=== PATIENT | male | born 1950 | race Caucasian/White ===

== ENCOUNTER 2016-08-05 18:36 | Emergency (ER) | payer SELFPAY ==
[2016-08-05 19:27] LABS: BASOPHIL 0.3 % (0-2); EOSINOPHIL 2.9 % (0-7); HCT 39.2 % (42.0-52.0); HGB 13.4 g/dl (13.2-18.0); LYMPHOCYTE 22.5 % (15-48); MCH 29.8 pg (25.0-31.0); MCHC 34.2 g/dL (32.0-36.0); MCV 87.1 fL (78.0-100.0); MONOCYTE 7.8 % (0-12); MPV 9.6 fL (6.0-9.5); NEUTROPHIL 66.5 % (41-80); PLT 261 K/uL (150-400); RDW 13.3 % (11.5-14.0); WBC 7.6 K/uL (4.0-10.5)
[2016-08-05 19:42] LABS: INR 1.07 (0.9-1.2); PROTHROMBIN TIME 13.5 SECONDS (11.7-14.0)
[2016-08-05 19:43] LABS: PTT 31.7 SECONDS (23.2-31.4)
[2016-08-05 19:49] LABS: ALBUMIN 3.9 g/dL (3.4-4.8); BILIRUBIN - TOTAL 0.4 mg/dL (0.1-1.0); CREATININE 0.7 mg/dL (0.7-1.2); GLOBULIN (CALCULATION) 3.5 g/dL (2.2-4.2); LACTIC ACID 0.7 mmol/L (0.5-2.2); TOTAL PROTEIN 7.4 g/dL (6.4-8.3)
== END 2016-08-05 21:11 | disposition home or self-care (01) ==
LOC: FER 18:36
PROVIDERS: Emergency Medicine
DX: L03.113 Cellulitis of right upper limb (principal); E11.9 Type 2 diabetes mellitus without complications; I10 Essential (primary) hypertension; I25.2 Old myocardial infarction; Z87.891 Personal history of nicotine dependence; Z79.84 Long term (current) use of oral hypoglycemic drugs; Z98.890 Other specified postprocedural states
CPT/HCPCS: 36415; 73080; 80053; 83605; 85025; 85610; 85730; 87040; 93005

== ENCOUNTER 2020-02-28 15:58 | Emergency (ER) | payer MEDICARE ==
[~2020-02-28 15:58] MED LIST: ACETAMINOPHEN325 MG PO; ASPIRIN325 MG PO; CYCLOBENZAPRINE10 MG PO; LIPITOR 10MG TA10 MG PO; LOPRESSOR50 MG PO; LOTREL 5-10 MG1 EACH PO; METFORMIN HCL500 MG PO; NITROQUIK SL0.4 MG SL; VENTOLIN (2.5 MG/3 M INH; XARELTO20 MG PO
[2020-02-28 17:43] LABS: BASOPHIL 1.2 % (0-2); EOSINOPHIL 4.8 % (0-7); HCT 43.3 % (42.0-52.0); HGB 13.8 g/dl (13.2-18.0); LYMPHOCYTE 30.5 % (15-48); MCH 29.1 pg (25.0-31.0); MCHC 31.9 g/dL (32.0-36.0); MCV 91.2 fL (78.0-100.0); MONOCYTE 8.9 % (0-12); MPV 9.4 fL (6.0-9.5); NEUTROPHIL 54.2 % (41-80); NRBC 0; PLT 236 K/uL (150-400); RBC 4.75 M/uL (4.70-6.00); RDW 13.9 % (11.5-14.0); WBC 5.1 K/uL (4.0-10.5)
[2020-02-28 17:47] LABS: INR 1.53 (0.9-1.2); PROTHROMBIN TIME 17.5 SECONDS (11.4-13.6)
[2020-02-28 17:48] LABS: PTT 40.7 SECONDS (22.2-34.7)
[2020-02-28 17:52] LABS: ALBUMIN 3.9 g/dL (3.4-5.0); BILIRUBIN - TOTAL 0.3 mg/dL (0.2-1.0); BUN/CREAT RATIO (CALC) 19.7 RATIO; CREATININE 0.76 mg/dL (0.67-1.17); GLOBULIN (CALCULATION) 3.7 g/dL; MAGNESIUM 1.8 mg/dL (1.8-2.4); TOTAL PROTEIN 7.6 g/dL (6.4-8.2)
[2020-02-28 18:01] LABS: CKMB 1.6 ng/mL (0.0-3.6); PRO-BNP 528 pg/mL (<125)
== END 2020-02-28 19:00 | disposition home or self-care (01) ==
LOC: FER 15:58
PROVIDERS: Emergency Medicine
DX: R06.00 Dyspnea, unspecified (principal); R55 Syncope and collapse; R07.9 Chest pain, unspecified; I48.91 Unspecified atrial fibrillation; I49.3 Ventricular premature depolarization; R60.0 Localized edema; R05 Cough; R06.2 Wheezing; E66.9 Obesity, unspecified; I10 Essential (primary) hypertension; E11.9 Type 2 diabetes mellitus without complications; E78.5 Hyperlipidemia, unspecified; Z79.01 Long term (current) use of anticoagulants
CPT/HCPCS: 36415; 36600; 71045; 80053; 82553; 82803; 83735; 83874; 83880; 84484; 85025; 85610; 85730; 93005; 94640; J1940